=== PATIENT | female | born 2000 | race Caucasian/White ===

== ENCOUNTER 2023-06-22 23:41 | Observation (INO) ==
[2023-06-23] MEDS ORDERED: KETOROLAC TROMETHAMINE 15 MG/ML VIAL IV STA (00:04)
[2023-06-23] MEDS ORDERED: SODIUM CHLORIDE 0.9% 1,000 ML IV SCH (00:15)
[2023-06-23 00:35] LABS: Basophils # (auto) 0.03 K/uL (0.00-0.20); Basophils % (auto) 0.5 %; Eosinophils # (auto) 0.18 K/uL (0.00-0.50); Eosinophils % (auto) 3.1 %; Hematocrit (blood only) 36.8 % (37.0-47.0); Hemoglobin 12.4 g/dl (12.0-16.0); Immature Granulocytes # (auto) 0.02 K/uL (0.01-0.20); Immature Granulocytes % (auto) 0.3 %; Lymphocytes # (auto) 2.07 K/uL (1.20-3.40); Lymphocytes % (auto) 36.2 %; Mean Corpuscular Hgb Conc 33.7 g/dL (32.0-36.0); Mean Platelet Volume 9.9 fL (9.4-12.4); Monocytes # (auto) 0.69 K/uL (0.11-0.59); Monocytes % (auto) 12.1 %; Neutrophils # (auto) 2.73 K/uL (1.40-6.50); Neutrophils % (auto) 47.8 %; Platelet Count 292 K/uL (130-400); RDW Coefficient of Variation 12.8 % (11.5-14.5); RDW Standard Deviation 43.3 fL (36.4-46.3); White Blood Count 5.72 K/ul (4.8-10.8)
[2023-06-23 00:52] LABS: Monotest Negative (Negative); Pregnancy Test, Serum Negative (Negative)
[2023-06-23 00:56] LABS: Albumin Globulin Ratio 1.4 (0.9-2); Albumin Level 3.9 gm/dl (3.4-5.0); BUN Creatinine Ratio 26.4 (10-20); Bilirubin,Total 0.3 mg/dl (0.2-1.0); Calcium 8.9 mg/dl (8.6-10.3); Creatinine Clr Calc Pharmacy 105.8 ml/min; Est GFR (African American) 137.8 ml/min; Est GFR (Non-African American) 118.9 ml/min; Globulin 2.7 gm/dl (2.5-4.0); Potassium 3.4 mmol/L (3.5-5.1); Total Protein 6.6 gm/dl (6.0-8.3)
[2023-06-23] MEDS ORDERED: OPTIRAY 320 500ml IV ONE ×2 (01:05→01:35)
[2023-06-23 01:26] LABS: Adenovirus PCR Not Detected (NotDetected); Bordetella parapertussis PCR Not Detected (NotDetected); Bordetella pertussis PCR Not Detected (NotDetected); Chlamydia pneumoniae PCR Not Detected (NotDetected); Coronavirus 229E PCR Not Detected (NotDetected); Coronavirus CoV-2 (COVID19)PCR Not Detected (NotDetected); Coronavirus HKU1 PCR Not Detected (NotDetected); Coronavirus NL63 PCR Not Detected (NotDetected); Coronavirus OC43PCR Not Detected (NotDetected); Human Metapneumovirus PCR Not Detected (NotDetected); Influenza A PCR Not Detected (NotDetected); Influenza B PCR Not Detected (NotDetected); Mycoplasma pneumoniae PCR Not Detected (NotDetected); Parainfluenza Virus 1 PCR Not Detected (NotDetected); Parainfluenza Virus 2 PCR Not Detected (NotDetected); Parainfluenza Virus 3 PCR Not Detected (NotDetected); Parainfluenza Virus 4 PCR Not Detected (NotDetected); Respiratory Syncytial VirusPCR Not Detected (NotDetected)
[2023-06-23 01:27] LABS: Rhinovirus/Enterovirus PCR DETECTED (NotDetected)
--- NOTE | 2023-06-23 01:54 | CT Scan Report ---
Exam(s): CT NECK With Contrast IV Amt: 84 ML OPTIRAY 320 EXAM: CT Neck With Intravenous Contrast CLINICAL HISTORY: Reason for exam: recent dental surgery; neck swelling. TECHNIQUE: Axial computed tomography images of the neck with intravenous contrast. CTDI is 18.18 mGy and DLP is 487 mGy-cm. Automated exposure control was utilized for the study. A dose lowering technique was utilized adhering to the principles of ALARA. CONTRAST: Patient received 84 ML OPTIRAY 320 of IV contrast COMPARISON: No relevant prior studies available. FINDINGS: Oropharynx: Unremarkable. No significant tonsillar enlargement. No peritonsillar abscess. Hypopharynx: Unremarkable. Larynx: Unremarkable. Normal epiglottis. Trachea: Unremarkable. Retropharyngeal space: Unremarkable. Submandibular/parotid glands: Unremarkable. Glands are normal in size. Thyroid: Unremarkable. No enlarged or calcified nodules. Bones/joints: Recent bilateral maxillary wisdom tooth extraction. No facial fracture or abscess is identified. Soft tissues: Unremarkable. Vasculature: No acute findings. Lymph nodes: Unremarkable. No lymphadenopathy. Sinuses: Mucosal thickening throughout the maxillary sinuses as well as several ethmoid air cells and a portion of the left frontal sinus suggesting sinusitis. No gas/fluid level is seen. Lung apices: Unremarkable as visualized. Mediastinum: There is pneumomediastinum in the upper thorax extending up throughout the neck up to the level of the skull base. No abscess or focal fluid collection is seen. No pneumothorax is identified. IMPRESSION: 1. There is pneumomediastinum in the upper thorax extending up throughout the neck up to the level of the skull base. No abscess or focal fluid collection is seen. No pneumothorax is identified. 2. Mucosal thickening throughout the maxillary sinuses as well as several ethmoid air cells and a portion of the left frontal sinus suggesting sinusitis. No gas/fluid level is seen. 3. Recent bilateral maxillary wisdom tooth extraction. No facial fracture or abscess is identified. Communications: Call Doctor Above results Electronically signed by: Alex Carpio MD 06/23/23 01:53 AM
[2023-06-23] MEDS ORDERED: cefTRIAXone SODIUM 1,000 MG/50 ML BAG IV STA (02:09)
[2023-06-23] MEDS ORDERED: metroNIDAZOLE 500 MG/100 ML BAG IV STA (02:09)
[2023-06-23] MEDS ORDERED: HYDROcodone/HOMATROPINE SYRUP 5MG/1.5MG 5ML UDP PO STA (02:17)
--- NOTE | 2023-06-23 02:21 | CT Scan Report ---
Exam(s): CT CHEST With Contrast IV Amt: 84 ML OPTIRAY 320 EXAM: CT Chest With Intravenous Contrast CLINICAL HISTORY: Reason for exam: Subcutaneous air on ct neck. TECHNIQUE: Axial computed tomography images of the chest with intravenous contrast. Automated exposure control was utilized for the study. A dose lowering technique was utilized adhering to the principles of ALARA. CONTRAST: Patient received 84 ML OPTIRAY 320 of IV contrast COMPARISON: No relevant prior studies available. FINDINGS: Lungs: Unremarkable. No mass. No consolidation. Pleural space: Unremarkable. No pneumothorax. No significant effusion. Heart: Unremarkable. No cardiomegaly. No significant pericardial effusion. No significant coronary artery calcifications. Mediastinum: There is pneumomediastinum throughout the mid to upper mediastinum and neck. No abscess or focal fluid collection is seen. The esophagus is nondistended and appears unremarkable. No focal wall thickening or foreign body is seen. Bones/joints: Unremarkable. No acute fracture. No dislocation. Soft tissues: Unremarkable. Vasculature: Unremarkable. No thoracic aortic aneurysm. Lymph nodes: Unremarkable. No enlarged lymph nodes. IMPRESSION: There is pneumomediastinum throughout the mid to upper mediastinum and neck. No abscess or focal fluid collection is seen. The esophagus is nondistended and appears unremarkable. No focal wall thickening or foreign body is seen. Findings discussed with Zain WILKERSON at 0203 hrs. (-05:00) Electronically signed by: Alex Carpio MD 06/23/23 02:20 AM
--- NOTE | 2023-06-23 02:34 | History & Physical Report ---
Date of Service June 23, 2023 Assessment & Plan (1) Pneumomediastinum: Plan: Likely secondary patient's recent URI, aggressive cough. + for Enterovirus on [employer] panel Patient denies trauma. No pneumothorax. No esophageal pathology noted. -Observation to medical -Continue supplemental O2 via NRB -Guaifenesin -Continue antibiotic coverage Ceftriaxone and Flagyl for now -Repeat CXR in AM History of Present Illness Chief Complaint: cough Primary Care Provider: [facility] Kaleigh Stevens is a 23yo female presenting with pneumomediastinum. Patient with recent wisdom tooth extraction. She had URI symptoms with severe coughing productive for green sputum. She developed subcutaneous air then had some swelling and stiffness of the neck. She denies shortness of breath, fever, chills, abdominal pain, nausea, vomiting or diarrhea. Patient does not smoke or vape. No report of trauma. No reflux symptoms, dysphagia or epigastric pain. Allergies Allergy/AdvReac Type Severity Reaction Status Date / Time amoxicillin Allergy Intermediate Hives Verified 06/23/23 00:25 Penicillins Allergy Intermediate Hives Verified 06/23/23 00:25 Home Medications Medication Instructions Recorded Confirmed Type norgestimate 0.25 mg-ethinyl 1 tab PO HS 06/23/23 06/23/23 History estradiol 35 mcg tablet (Sprintec (28)) Past Med/Surg History Social History Smoking Status: Never smoker Preferred Language: Swedish Feels Safe at Home: Yes Review of Systems Review of Systems: All systems reviewed & are unremarkable except as noted in HPI & below Physical Exam Physical Exam: General: patient resting comfortably, NAD, non-toxic in appearance, AA&O x 4 Skin: warm, dry, intact, no rashes or lesions HEENT: NC/AT, PERRL, EOMI, anicteric sclera, conjunctiva without injection, external ear normal to inspection and nontender, nares patent, moist mucus membranes, dentition intact, no oropharyngeal lesions, neck supple, trachea midline, no LAD, no thyromegaly, no JVD Heart: +S1/S2, regular, no m/r/g Lungs: equal air entry bilaterally, no rales/rhonchi/wheezes, NRB in place Abd: +BS, soft, NT/ND, no masses/organomegaly/ascites Ext: warm, 2+ pulses in UE/LE bilaterally, no clubbing/cyanosis or edema Neuro: nonfocal, patient AA&O x 4, speech intact, no facial droop, moving all extremities on command with equal strength 5/5 Results & Data Results & Data Vital Signs (Past 12 Hours) Vital Signs Temp Pulse Pulse Resp BP BP Pulse Ox 06/23/23 02:00 71 19 121/83 98 06/23/23 01:36 88 20 129/75 99 06/23/23 01:00 75 16 113/74 98 06/23/23 00:30 81 17 119/74 98 06/23/23 00:02 94 H 16 129/81 98 06/22/23 23:45 36.4 C L 93 H 20 139/78 100 O2 Del Method 06/23/23 02:00 Room Air 06/23/23 01:36 Room Air 06/23/23 01:00 Room Air 06/23/23 00:30 Room Air 06/23/23 00:02 Room Air 06/22/23 23:45 Room Air Laboratory Results Laboratory Results WBC 5.72 K/ul (4.8-10.8) 06/23/23 00:12 RBC 4.00 M/uL (4.20-5.40) L 06/23/23 00:12 Hgb 12.4 g/dl (12.0-16.0) 06/23/23 00:12 Hct 36.8 % (37.0-47.0) L 06/23/23 00:12 MCV 92.0 fL (80.0-100.0) 06/23/23 00:12 MCH 31.0 pg (25.0-34.0) 06/23/23 00:12 MCHC 33.7 g/dL (32.0-36.0) 06/23/23 00:12 RDW Std Deviation 43.3 fL (36.4-46.3) 06/23/23 00:12 RDW Coeff of Anitha 12.8 % (11.5-14.5) 06/23/23 00:12 Plt Count 292 K/uL (130-400) 06/23/23 00:12 MPV 9.9 fL (9.4-12.4) 06/23/23 00:12 Immature Gran % (Auto) 0.3 % 06/23/23 00:12 Neut % (Auto) 47.8 % 06/23/23 00:12 Lymph % (Auto) 36.2 % 06/23/23 00:12 Pitt % (Auto) 12.1 % 06/23/23 00:12 Eos % (Auto) 3.1 % 06/23/23 00:12 Baso % (Auto) 0.5 % 06/23/23 00:12 Neut # (Auto) 2.73 K/uL (1.40-6.50) 06/23/23 00:12 Lymph # (Auto) 2.07 K/uL (1.20-3.40) 06/23/23 00:12 Pitt # (Auto) 0.69 K/uL (0.11-0.59) H 06/23/23 00:12 Eos # (Auto) 0.18 K/uL (0.00-0.50) 06/23/23 00:12 Baso # (Auto) 0.03 K/uL (0.00-0.20) 06/23/23 00:12 Immature Gran # (Auto) 0.02 K/uL (0.01-0.20) 06/23/23 00:12 Sodium 137 mmol/L (136-145) 06/23/23 00:15 Potassium 3.4 mmol/L (3.5-5.1) L 06/23/23 00:15 Chloride 104 mmol/L (98-107) 06/23/23 00:15 Carbon Dioxide 24 mmol/L (21-32) 06/23/23 00:15 Anion Gap 9 (3-11) 06/23/23 00:15 BUN 19 mg/dl (6-23) 06/23/23 00:15 Creatinine 0.72 mg/dl (0.6-1.2) 06/23/23 00:15 Est Cr Clr Drug Dosing 105.8 ml/min 06/23/23 00:15 Est GFR ( Amer) 137.8 ml/min 06/23/23 00:15 Est GFR (Non-Af Amer) 118.9 ml/min 06/23/23 00:15 BUN/Creatinine Ratio 26.4 (10-20) H 06/23/23 00:15 Glucose 125 mg/dl (70-99(Fasting)) H 06/23/23 00:15 Calcium 8.9 mg/dl (8.6-10.3) 06/23/23 00:15 Total Bilirubin 0.3 mg/dl (0.2-1.0) 06/23/23 00:15 AST 28 U/L (13-39) 06/23/23 00:15 ALT 17 U/L (7-52) 06/23/23 00:15 Alkaline Phosphatase 54 U/L (34-104) 06/23/23 00:15 Total Protein 6.6 gm/dl (6.0-8.3) 06/23/23 00:15 Albumin 3.9 gm/dl (3.4-5.0) 06/23/23 00:15 Globulin 2.7 gm/dl (2.5-4.0) 06/23/23 00:15 Albumin/Globulin Ratio 1.4 (0.9-2) 06/23/23 00:15 HCG, Qual Negative (Negative) 06/23/23 00:12 Adenovirus (PCR) Not Detected (NotDetected) 06/23/23 00:19 B. pertussis DNA (PCR) Not Detected (NotDetected) 06/23/23 00:19 B.parapertussis DNA PCR Not Detected (NotDetected) 06/23/23 00:19 C. pneumoniae DNA (PCR) Not Detected (NotDetected) 06/23/23 00:19 Coronavirus OC43 (PCR) Not Detected (NotDetected) 06/23/23 00:19 Coronavirus HKU1 (PCR) Not Detected (NotDetected) 06/23/23 00:19 Coronavirus 229E (PCR) Not Detected (NotDetected) 06/23/23 00:19 SARS-CoV-2 (PCR) Not Detected (NotDetected) 06/23/23 00:19 Coronavirus NL63 (PCR) Not Detected (NotDetected) 06/23/23 00:19 Monoscreen Negative (Negative) 06/23/23 00:12 Human Metapneumovir PCR Not Detected (NotDetected) 06/23/23 00:19 Influenza Type A (PCR) Not Detected (NotDetected) 06/23/23 00:19 Influenza Type B (PCR) Not Detected (NotDetected) 06/23/23 00:19 M. pneumoniae (PCR) Not Detected (NotDetected) 06/23/23 00:19 Parainfluenza 1 (PCR) Not Detected (NotDetected) 06/23/23 00:19 Parainfluenza 2 (PCR) Not Detected (NotDetected) 06/23/23 00:19 Parainfluenza 3 (PCR) Not Detected (NotDetected) 06/23/23 00:19 Parainfluenza 4 (PCR) Not Detected (NotDetected) 06/23/23 00:19 RSV (PCR) Not Detected (NotDetected) 06/23/23 00:19 Entero/Rhino (PCR) DETECTED (NotDetected) A* 06/23/23 00:19 Group A Strep (PCR) NOT DETECTED (NotDetected) 06/23/23 00:12 Impressions Soft Tissue Neck CT 06/22/23 23:51 CR Exam(s): CT NECK With Contrast IV Amt: 84 ML OPTIRAY 320 EXAM: CT Neck With Intravenous Contrast CLINICAL HISTORY: Reason for exam: recent dental surgery; neck swelling. TECHNIQUE: Axial computed tomography images of the neck with intravenous contrast. CTDI is 18.18 mGy and DLP is 487 mGy-cm. Automated exposure control was utilized for the study. A dose lowering technique was utilized adhering to the principles of ALARA. CONTRAST: Patient received 84 ML OPTIRAY 320 of IV contrast COMPARISON: No relevant prior studies available. FINDINGS: Oropharynx: Unremarkable. No significant tonsillar enlargement. No peritonsillar abscess. Hypopharynx: Unremarkable. Larynx: Unremarkable. Normal epiglottis. Trachea: Unremarkable. Retropharyngeal space: Unremarkable. Submandibular/parotid glands: Unremarkable. Glands are normal in size. Thyroid: Unremarkable. No enlarged or calcified nodules. Bones/joints: Recent bilateral maxillary wisdom tooth extraction. No facial fracture or abscess is identified. Soft tissues: Unremarkable. Vasculature: No acute findings. Lymph nodes: Unremarkable. No lymphadenopathy. Sinuses: Mucosal thickening throughout the maxillary sinuses as well as several ethmoid air cells and a portion of the left frontal sinus suggesting sinusitis. No gas/fluid level is seen. Lung apices: Unremarkable as visualized. Mediastinum: There is pneumomediastinum in the upper thorax extending up throughout the neck up to the level of the skull base. No abscess or focal fluid collection is seen. No pneumothorax is identified. IMPRESSION: 1. There is pneumomediastinum in the upper thorax extending up throughout the neck up to the level of the skull base. No abscess or focal fluid collection is seen. No pneumothorax is identified. 2. Mucosal thickening throughout the maxillary sinuses as well as several ethmoid air cells and a portion of the left frontal sinus suggesting sinusitis. No gas/fluid level is seen. 3. Recent bilateral maxillary wisdom tooth extraction. No facial fracture or abscess is identified. Communications: Call Doctor Above results Electronically signed by: Alex Carpio MD 06/23/23 01:[address] 06/23/23 01:14 Exam(s): CT CHEST With Contrast IV Amt: 84 ML OPTIRAY 320 EXAM: CT Chest With Intravenous Contrast CLINICAL HISTORY: Reason for exam: Subcutaneous air on ct neck. TECHNIQUE: Axial computed tomography images of the chest with intravenous contrast. Automated exposure control was utilized for the study. A dose lowering technique was utilized adhering to the principles of ALARA. CONTRAST: Patient received 84 ML OPTIRAY 320 of IV contrast COMPARISON: No relevant prior studies available. FINDINGS: Lungs: Unremarkable. No mass. No consolidation. Pleural space: Unremarkable. No pneumothorax. No significant effusion. Heart: Unremarkable. No cardiomegaly. No significant pericardial effusion. No significant coronary artery calcifications. Mediastinum: There is pneumomediastinum throughout the mid to upper mediastinum and neck. No abscess or focal fluid collection is seen. The esophagus is nondistended and appears unremarkable. No focal wall thickening or foreign body is seen. Bones/joints: Unremarkable. No acute fracture. No dislocation. Soft tissues: Unremarkable. Vasculature: Unremarkable. No thoracic aortic aneurysm. Lymph nodes: Unremarkable. No enlarged lymph nodes. IMPRESSION: There is pneumomediastinum throughout the mid to upper mediastinum and neck. No abscess or focal fluid collection is seen. The esophagus is nondistended and appears unremarkable. No focal wall thickening or foreign body is seen. Findings discussed with Zain WILKERSON at 0203 hrs. (-05:00) Electronically signed by: Alex Carpio MD 06/23/23 02:20 AM PG Care Time/CCT Total # of Minutes Spent Total Time Spent with Patient: Total time spent is greater than 50% in coordination of care (as documented) at patient's floor/unit and/or counseling patient: Coding Level of Care Code 20663 INT INP/OBS CARE 2MIN Diagnoses Pneumomediastinum J98.2
[2023-06-23] MEDS ORDERED: POTASSIUM CHLORIDE CRTAB 20 MEQ TABCR PO STA (04:42)
[2023-06-23] MEDS ORDERED: ONDANSETRON INJ 2 MG/ML 2 ML VIAL IV PRN (04:42)
--- NOTE | 2023-06-23 05:37 | Emergency Department Note ---
History of Present Illness General Chief complaint: Dental/Oral Stated complaint: NECK/FACE SWELLING,TROUBLE BREATHING,S/P SURGERY Time Seen by Provider: 06/22/23 23:56 History of Present Illness Maximum Pain Intensity: 5 This is a 23-year-old female presenting to the emergency department for evaluation of discomfort in her neck with stiffness and swelling. Patient states symptoms have occurred over the past few hours. The patient had 2 wisdom teeth removed last week over the back home in [place]. She did take Zithromax prior to the procedure and has not had fevers or chills. She rates her current discomfort a 5/10. The patient did have some URI symptoms a few days ago but no significant chest pain, chest tightness, or shortness of breath. She was not intubated for her wisdom teeth removal. No significant coughing or injury. Earlier tonight she felt like the skin was very crackly and when she pressed on it it felt like popcorn. Home Medications Medication Instructions Recorded Confirmed Type norgestimate 0.25 mg-ethinyl 1 tab PO HS 06/23/23 06/23/23 History estradiol 35 mcg tablet (Sprintec (28)) Allergies Allergy/AdvReac Type Severity Reaction Status Date / Time amoxicillin Allergy Intermediate Hives Verified 06/23/23 00:25 Penicillins Allergy Intermediate Hives Verified 06/23/23 00:25 Past Med/Surg History Medical History Pneumomediastinum Surgical History [place] teeth removed Social History Smoking Status: Never smoker Hx Alcohol Use: Yes Alcohol type: beer, wine and hard liquor Hx Substance Use: No Preferred Language: American Communication Ability: Effective 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 Beliefs That Will Affect Care: None Current Living Situation: Alone Feels Safe at Home: Yes Assistive Devices: None Review of Systems A total of 10 systems reviewed and were otherwise negative Physical Exam Vital Signs Vital Signs - 24 hr 06/22/23 23:45 06/23/23 00:02 06/23/23 00:30 Temperature 36.4 C L Temperature Source Temporal Artery Scan Pulse Rate 93 H Pulse Rate [Apical] 94 H 81 Respiratory Rate 20 16 17 Respiratory Effort / Characteristics Non-Labored Non-Labored Respiratory Depth Normal Normal Respiratory Pattern Regular Regular Blood Pressure 139/78 Blood Pressure [Right Arm] 129/81 119/74 Blood Pressure Mean 98 Blood Pressure Mean [Right Arm] 97 89 Pulse Oximetry 100 98 98 Oxygen Delivery Method Room Air Room Air Room Air Sepsis Recent Fever Within 48 Hours No Sepsis New/Unexplained Change in Mental Status No Sepsis Action Taken by Nursing No Action Required 06/23/23 01:00 06/23/23 01:36 06/23/23 02:00 Temperature Temperature Source Pulse Rate Pulse Rate [Apical] 75 88 71 Respiratory Rate 16 20 19 Respiratory Effort / Characteristics Non-Labored Non-Labored Respiratory Depth Normal Normal Respiratory Pattern Regular Blood Pressure Blood Pressure [Right Arm] 113/74 129/75 121/83 Blood Pressure Mean Blood Pressure Mean [Right Arm] 87 93 95 Pulse Oximetry 98 99 98 Oxygen Delivery Method Room Air Room Air Room Air Sepsis Recent Fever Within 48 Hours Sepsis New/Unexplained Change in Mental Status Sepsis Action Taken by Nursing VITALS: Vitals are noted on the nurse's note and reviewed by myself. Vital signs stable. GENERAL: Well-developed, well-nourished, white female, who is in no acute distress and resting comfortably. Patient is cooperative with the examination. HEAD: Normocephalic atraumatic. MOUTH: Mucous membranes moist. Tonsils are not enlarged. Pharynx without erythema, blood, or exudate. Uvula midline. Airway patent. Dentition in good repair without obvious abscess. NECK: Supple without nuchal rigidity. No lymphadenopathy. No thyromegaly. Cervical spine is nontender. Palpable crepitus noted. HEART: Regular rate and rhythm without murmurs gallops or rubs. LUNGS: Clear to auscultation bilaterally without wheezes, rales or rhonchi. No retractions or accessory muscle use. ABDOMEN: Positive normal bowel sounds x 4. Soft, nontender, without masses or organomegaly. No guarding or rebound tenderness. MUSCULOSKELETAL: No muscle atrophy, erythema, or edema noted. Full range of motion in all extremities. Course Administered Medications Discontinued Medications Hydrocodone Bit/Homatropine Methylb (Hydrocodone/Homatropine Syrup 5mg/1.5mg 5ml Udp) 5 ml PO NOW STA Stop: 06/23/23 02:18 Last Admin: 06/23/23 02:33 Dose: 5 ml Documented By: IMELDA Sodium Chloride (Nss) 1,000 mls @ 999 mls/hr IV .Q1H1M MARLON Stop: 06/23/23 01:15 Last Infusion: 06/23/23 01:12 Dose: Infused Documented By: Admin: 06/23/23 00:11 Dose: 999 mls/hr Documented By: IMELDA Ceftriaxone Sodium (Rocephin) 1,000 mg in 50 mls @ 100 mls/hr IV NOW STA Stop: 06/23/23 02:38 Last Infusion: 06/23/23 03:09 Dose: Infused Documented By: Admin: 06/23/23 02:21 Dose: 100 mls/hr Documented By: IMELDA Metronidazole (Flagyl) 500 mg in 100 mls @ 100 mls/hr IV NOW STA; Protocol Stop: 06/23/23 03:08 Last Infusion: 06/23/23 03:34 Dose: Infused Documented By: Admin: 06/23/23 02:21 Dose: 100 mls/hr Documented By: IMELDA Ioversol (Optiray 320 500ml) 100 ml IV ONCE ONE Stop: 06/23/23 01:06 Last Admin: 06/23/23 01:05 Dose: 84 ml Documented By: SABIHA Ioversol (Optiray 320 500ml) 100 ml IV ONCE ONE Stop: 06/23/23 01:36 Last Admin: 06/23/23 01:36 Dose: 84 ml Documented By: SABIHA Ketorolac Tromethamine (Ketorolac Tromethamine 15 Mg/Ml Vial) 15 mg IV NOW STA Stop: 06/23/23 00:05 Last Admin: 06/23/23 00:11 Dose: 15 mg Documented By: IMELDA Potassium Chloride (Potassium Chloride Crtab 20 Meq Tabcr) 40 meq PO NOW STA Stop: 06/23/23 04:43 Last Admin: 06/23/23 05:00 Dose: 40 meq Documented By: HARDIK Medical Decision Making Differential Diagnosis Differential diagnosis includes, but is not limited to: Dental infection, myocardial infarction, dysrhythmia, pericarditis, pneumothorax, aortic aneurysm/dissection, DVT/PE, anxiety, GERD, PUD, electrolyte imbalance, thyroid disorder, pneumonia, bronchitis, pancreatitis, and others Laboratory Data 06/23/23 00:12 06/23/23 00:15 Lab Results 06/23/23 06/23/23 06/23/23 Range/Units 00:12 00:15 00:19 WBC 5.72 (4.8-10.8) K/ul RBC 4.00 L (4.20-5.40) M/uL Hgb 12.4 (12.0-16.0) g/dl Hct 36.8 L (37.0-47.0) % MCV 92.0 (80.0-100.0) fL MCH 31.0 (25.0-34.0) pg MCHC 33.7 (32.0-36.0) g/dL RDW Std Deviation 43.3 (36.4-46.3) fL RDW Coeff of Anitha 12.8 (11.5-14.5) % Plt Count 292 (130-400) K/uL MPV 9.9 (9.4-12.4) fL Immature Gran % (Auto) 0.3 % Neut % (Auto) 47.8 % Lymph % (Auto) 36.2 % Kings % (Auto) 12.1 % Eos % (Auto) 3.1 % Baso % (Auto) 0.5 % Neut # (Auto) 2.73 (1.40-6.50) K/uL Lymph # (Auto) 2.07 (1.20-3.40) K/uL Kings # (Auto) 0.69 H (0.11-0.59) K/uL Eos # (Auto) 0.18 (0.00-0.50) K/uL Baso # (Auto) 0.03 (0.00-0.20) K/uL Immature Gran # (Auto) 0.02 (0.01-0.20) K/uL Sodium 137 (136-145) mmol/L Potassium 3.4 L (3.5-5.1) mmol/L Chloride 104 (98-107) mmol/L Carbon Dioxide 24 (21-32) mmol/L Anion Gap 9 (3-11) BUN 19 (6-23) mg/dl Creatinine 0.72 (0.6-1.2) mg/dl Est Cr Clr Drug Dosing 105.8 ml/min Est GFR ( Amer) 137.8 ml/min Est GFR (Non-Af Amer) 118.9 ml/min BUN/Creatinine Ratio 26.4 H (10-20) Glucose 125 H (70-99(Fasting)) mg/dl Calcium 8.9 (8.6-10.3) mg/dl Total Bilirubin 0.3 (0.2-1.0) mg/dl AST 28 (13-39) U/L ALT 17 (7-52) U/L Alkaline Phosphatase 54 (34-104) U/L Total Protein 6.6 (6.0-8.3) gm/dl Albumin 3.9 (3.4-5.0) gm/dl Globulin 2.7 (2.5-4.0) gm/dl Albumin/Globulin Ratio 1.4 (0.9-2) HCG, Qual Negative (Negative) Adenovirus (PCR) Not Detected (NotDetected) B. pertussis DNA (PCR) Not Detected (NotDetected) B.parapertussis DNA PCR Not Detected (NotDetected) C. pneumoniae DNA (PCR) Not Detected (NotDetected) Coronavirus OC43 (PCR) Not Detected (NotDetected) Coronavirus HKU1 (PCR) Not Detected (NotDetected) Coronavirus 229E (PCR) Not Detected (NotDetected) SARS-CoV-2 (PCR) Not Detected (NotDetected) Coronavirus NL63 (PCR) Not Detected (NotDetected) Monoscreen Negative (Negative) Human Metapneumovir PCR Not Detected (NotDetected) Influenza Type A (PCR) Not Detected (NotDetected) Influenza Type B (PCR) Not Detected (NotDetected) M. pneumoniae (PCR) Not Detected (NotDetected) Parainfluenza 1 (PCR) Not Detected (NotDetected) Parainfluenza 2 (PCR) Not Detected (NotDetected) Parainfluenza 3 (PCR) Not Detected (NotDetected) Parainfluenza 4 (PCR) Not Detected (NotDetected) RSV (PCR) Not Detected (NotDetected) Entero/Rhino (PCR) DETECTED A* (NotDetected) Group A Strep (PCR) NOT DETECTED (NotDetected) Imaging Data Radiologist's Impression: Soft Tissue Neck CT 06/22/23 23:51 CR Exam(s): CT NECK With Contrast IV Amt: 84 ML OPTIRAY 320 EXAM: CT Neck With Intravenous Contrast CLINICAL HISTORY: Reason for exam: recent dental surgery; neck swelling. TECHNIQUE: Axial computed tomography images of the neck with intravenous contrast. CTDI is 18.18 mGy and DLP is 487 mGy-cm. Automated exposure control was utilized for the study. A dose lowering technique was utilized adhering to the principles of ALARA. CONTRAST: Patient received 84 ML OPTIRAY 320 of IV contrast COMPARISON: No relevant prior studies available. FINDINGS: Oropharynx: Unremarkable. No significant tonsillar enlargement. No peritonsillar abscess. Hypopharynx: Unremarkable. Larynx: Unremarkable. Normal epiglottis. Trachea: Unremarkable. Retropharyngeal space: Unremarkable. Submandibular/parotid glands: Unremarkable. Glands are normal in size. Thyroid: Unremarkable. No enlarged or calcified nodules. Bones/joints: Recent bilateral maxillary wisdom tooth extraction. No facial fracture or abscess is identified. Soft tissues: Unremarkable. Vasculature: No acute findings. Lymph nodes: Unremarkable. No lymphadenopathy. Sinuses: Mucosal thickening throughout the maxillary sinuses as well as several ethmoid air cells and a portion of the left frontal sinus suggesting sinusitis. No gas/fluid level is seen. Lung apices: Unremarkable as visualized. Mediastinum: There is pneumomediastinum in the upper thorax extending up throughout the neck up to the level of the skull base. No abscess or focal fluid collection is seen. No pneumothorax is identified. IMPRESSION: 1. There is pneumomediastinum in the upper thorax extending up throughout the neck up to the level of the skull base. No abscess or focal fluid collection is seen. No pneumothorax is identified. 2. Mucosal thickening throughout the maxillary sinuses as well as several ethmoid air cells and a portion of the left frontal sinus suggesting sinusitis. No gas/fluid level is seen. 3. Recent bilateral maxillary wisdom tooth extraction. No facial fracture or abscess is identified. Communications: Call Doctor Above results Electronically signed by: Alex Carpio MD 06/23/23 01:[address] 06/23/23 01:14 Exam(s): CT CHEST With Contrast IV Amt: 84 ML OPTIRAY 320 EXAM: CT Chest With Intravenous Contrast CLINICAL HISTORY: Reason for exam: Subcutaneous air on ct neck. TECHNIQUE: Axial computed tomography images of the chest with intravenous contrast. Automated exposure control was utilized for the study. A dose lowering technique was utilized adhering to the principles of ALARA. CONTRAST: Patient received 84 ML OPTIRAY 320 of IV contrast COMPARISON: No relevant prior studies available. FINDINGS: Lungs: Unremarkable. No mass. No consolidation. Pleural space: Unremarkable. No pneumothorax. No significant effusion. Heart: Unremarkable. No cardiomegaly. No significant pericardial effusion. No significant coronary artery calcifications. Mediastinum: There is pneumomediastinum throughout the mid to upper mediastinum and neck. No abscess or focal fluid collection is seen. The esophagus is nondistended and appears unremarkable. No focal wall thickening or foreign body is seen. Bones/joints: Unremarkable. No acute fracture. No dislocation. Soft tissues: Unremarkable. Vasculature: Unremarkable. No thoracic aortic aneurysm. Lymph nodes: Unremarkable. No enlarged lymph nodes. IMPRESSION: There is pneumomediastinum throughout the mid to upper mediastinum and neck. No abscess or focal fluid collection is seen. The esophagus is nondistended and appears unremarkable. No focal wall thickening or foreign body is seen. Findings discussed with Zain WILKERSON at 0203 hrs. (-05:00) Electronically signed by: Alex Carpio MD 06/23/23 02:20 AM MDM Narrative Physical exam and history were performed. Nursing notes, EMR, and Medication List were personally reviewed. No social concerns were identified as barriers to patients care. Patient appears to have discomfort as above. She is concerned symptoms may be coming from a dental etiology. She does not appear toxic. My concern is the patient states that she did feel like there may have been air underneath her skin. IV access was established and labs were obtained. Patient was sent to CT scan for imaging of her neck. Patient's blood work is as above and was reviewed. She does not have a significantly elevated white blood cell count, gross anemia, bandemia, or significant electrolyte imbalance. Glucose is 125. She is not . Bio fire is POSITIVE for rhinovirus. Strep and mono are negative. CT scan of the neck was reviewed by myself and my attending. The patient has a large amount of air on CT concerning for pneumomediastinum. The patient was sent back to CT scan and additional pictures of her chest were performed. I did speak to radiology about the findings, and they agree this appears to be a pneumomediastinum. Findings were discussed with both the patient, as well as the patient's mother by telephone. The source of the air is not evident at this time. I did speak with the on-call catia designer, Dr. Michelle. Patient was placed on high flow oxygen, and given antitussive medication. Patient will be started on antibiotics and admitted to the hospital for ongoing care. I did speak with hospitalist team to help facilitate this. Please see the specialist's dictation for further patient course, plan, disposition. The chart was completed utilizing [employer] Speech Voice Recognition Software. Grammatical errors, random word insertions, pronoun errors, and incomplete sentences are an occasional consequence of this system due to software limitations, ambient noise, and hardware issues. Any formal questions or concerns about the content, text, or information contained within the body of this dictation should be directly addressed to the provider for clarification. . Impression & Plan Pneumomediastinum Discharge Plan Visit Data Chief Complaint: Dental/Oral Stated Complaint: NECK/FACE SWELLING,TROUBLE BREATHING,S/P SURGERY ED Provider: Doris Cummings ED Midlevel Provider: Zain Medina Discharge Problem: Pneumomediastinum Patient Disposition: Admitted As Inpatient Discharge Instructions Interventions: ED Discharge Assessment Last Done: 06/23/23 04:19
[2023-06-23] MEDS: ACETAMINOPHEN 325 MG TAB PO PRN ×2 (07:37→17:48)
[2023-06-23] MEDS: guaiFENesin/DEXTROM SYRUP 200MG/20MG 10ML UDC PO PRN ×2 (07:42→17:49)
--- NOTE | 2023-06-23 07:44 | XRay Report ---
XR chest 1V portable HISTORY: assess pneumomediastinum COMPARISON: Chest CT 06/23/2023. FINDINGS: Pneumomediastinum again noted which extends into the neck. This appears to have improved in the interval. No pneumothorax. No pleural effusions. The heart is normal in size. The lungs are barbie r. No acute fractures. IMPRESSION: Pneumomediastinum with extension into the neck. This has slightly improved. ACT 112: Negative or not required by law. Electronically signed by: Sekou Rodriguez M.D. 06/23/2023 7:43 AM
[2023-06-23] MEDS ORDERED: INFLUENZA VIRUS QUADRIVALENT VACCINE (IIV4) 0.5 ML SYR IM ONE (08:11)
[2023-06-23] MEDS ORDERED: metroNIDAZOLE 500 MG/100 ML BAG IV SCH (10:00)
--- NOTE | 2023-06-23 14:16 | Hospitalist Progress Note ---
Date of Service June 23, 2023 Assessment & Plan (1) Pneumomediastinum: Plan: Likely secondary patient's recent URI, aggressive cough. + for Enterovirus on Biofire panel Patient denies trauma. No pneumothorax. No esophageal pathology noted. -Discussed with pulmonolgy - okay to wean O2 - recommend cough suppressant, avoid pressure changes and heavy lifting for the next month -Guaifenesin -VSS and CXR without infectious process, WBC 5 --> stop abx -Repeat CXR in AM Plan continued stay, likely dc tomorrow if continues to improve Admission and Anticipated Discharge Date Admission Date: June 23, 2023 Subjective Patient seen sitting up in bed. Does report that she is feeling better compared to last night, does still have some shortness of breath occasionally. Reports Left side of face still feels alittle swollen. Decrease appetite. No chest pain. Review of Systems Review of Systems: All systems reviewed & are unremarkable except as noted in Subjective Physical Exam Physical Exam: General: WN/WD, NAD, VS as above HEENT: mild swelling left side of face, no crepitus on palpation Resp: normal respiratory effort, lungs clear to auscultation CV: RRR, no murmur, no edema Abd: normal bowel sounds, non tender, no hepatosplenomegaly Extremities: Moves all extremities, no edema Neuro: A&O x3, Skin: intact, no lesions noted Results & Data Results & Data Vital Signs (Past 12 Hours) Vital Signs Temp Pulse Pulse Pulse Resp BP BP 06/23/23 07:35 06/23/23 07:29 36.5 C 63 19 116/74 06/23/23 05:07 06/23/23 05:07 36.6 C 61 20 06/23/23 04:00 63 19 104/60 06/23/23 03:30 61 20 109/66 06/23/23 03:00 63 22 06/23/23 02:46 66 06/23/23 02:35 67 17 BP Pulse Ox O2 Del Method O2 Flow Rate 06/23/23 07:35 Non-rebreather 15 06/23/23 07:29 100 Oxymask 15 06/23/23 05:07 Non-rebreather 15 06/23/23 05:07 106/60 100 Non-rebreather 15 06/23/23 04:00 100 Non-rebreather 15 06/23/23 03:30 100 Non-rebreather 15 06/23/23 03:00 100 Non-rebreather 15 06/23/23 02:46 06/23/23 02:35 124/82 100 Non-rebreather 15 Laboratory Results Reviewed CBC, CMP and biofire. PG Care Time/CCT Total # of Minutes Spent Total Time Spent with Patient: Total time spent is greater than 50% in coordination of care (as documented) at patient's floor/unit and/or counseling patient: Coding Level of Care Code None Diagnoses Pneumomediastinum J98.2
[2023-06-24] MEDS: guaiFENesin/DEXTROM SYRUP 200MG/20MG 10ML UDC PO PRN ×2 (00:05→08:00)
--- NOTE | 2023-06-24 08:20 | XRay Report ---
XR chest 1V portable HISTORY: Follow-up pneumomediastinum COMPARISON: Chest 06/23/2023. FINDINGS: Near complete resolution of the pneumomediastinum compared the prior study. The lungs are c lear. No pleural effusions. No pneumothorax. No acute fractures. IMPRESSION: Near complete resolution of the pneumomediastinum. ACT 112: Negative or not required by law. Electronically signed by: Sekou Rodriguez M.D. 06/24/2023 8:19 AM
--- NOTE | 2023-06-24 09:02 | Discharge Summary ---
Date of Service June 24, 2023 Admission HPI Per Admitting Provider Kaleigh Stevens is a 23yo female presenting with pneumomediastinum. Patient with recent wisdom tooth extraction. She had URI symptoms with severe coughing productive for green sputum. She developed subcutaneous air then had some swelling and stiffness of the neck. She denies shortness of breath, fever, chills, abdominal pain, nausea, vomiting or diarrhea. Patient does not smoke or vape. No report of trauma. No reflux symptoms, dysphagia or epigastric pain. Principal Diagnosis Pneumomediastinum Discharge Exam General: WN/WD, NAD, VS as above HEENT: left sided face swelling improved , no crepitus on palpation Resp: normal respiratory effort, lungs clear to auscultation CV: RRR, no murmur, no edema Abd: non tender, no hepatosplenomegaly Extremities: Moves all extremities, no edema Neuro: A&O x3, Skin: intact, no lesions noted Discharge Data Allergies Allergy/AdvReac Type Severity Reaction Status Date / Time amoxicillin Allergy Intermediate Hives Verified 06/23/23 00:25 Penicillins Allergy Intermediate Hives Verified 06/23/23 00:25 Consultations 06/23/23 02:45 ED Decision to Admit Stat Ordered Studies 06/22/23 23:51 CT neck soft tissues [CT soft tissue neck w con] Stat 06/23/23 01:14 CT chest diagnostic w con Stat Hospital Course (1) Pneumomediastinum: Likely secondary patient's recent URI, aggressive cough. + for Enterovirus on Biofire panel Patient denies trauma. No pneumothorax. No esophageal pathology noted. - recommend cough suppressant, avoid pressure changes and heavy lifting for the next month -was started on flagyl and ceftriaxone but these were discontinued after VSS and CXR without infectious process, WBC 5 -Repeat CXR 06/24 showed near resolution of pneumomediastinum. 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 Discharge to home Total Time Total Time Spent Total Time Spent (In Minutes): 35 Discharge Plan Discharge Items Patient Disposition: Home - Self-Care Reason For Visit: PNEUMOMEDIASTINUM Discharge Diagnosis: Pneumomediastinum - improving Activity: Resume your previous activity Lifting Comment: No heavy lifting that causes you to strain for one month Bathing: No limitations Exercise Comment: Okay to resume gymnastics and participate in cardio exercise. Driving/Machine Use: No limitations Weightbearing: Full weightbearing Non-emergency contact: Primary Care Provider Call non-emergency contact if: your symptoms worsen Follow-up/Referrals: [facility] [Primary Care Provider] - (follow up in 1-2 weeks PATIENT NEEDS TO CALL [facility] TO HAVE A HOSPITAL FOLLOW UP APPOINTMENT IN 1-2 WEEKS AFTER DISCHARGE.) Diet: Regular Addtl Attending Provider Instructions: Ms. Stevens, You were hospitalized after development of pneumomediastinum, suspected to be caused by large amounts of coughing/straining. During your hospital stay with used high flow oxygen to barrel charrer helper in the resolution of this. The xray on the morning of 06/24 showed almost complete resolution of your pneumomediastinum. It will take a few days for this to completely resolve and for the next month you are at higher risk for developing another one. In order to prevent this, please refrain for the following for one month: * Changes in air pressure - like flying and scuba diving * Heavy lifting or anything that causes you to strain (constipation, etc) * Excessive coughing - please use a cough suppressant if you develop a cough You are okay to return to your gymnastics training regiment. Cardio activity will not impact the pneumomediastinum, but you should limit weight training for the next month. No lifting that causes you to strain. There are no changes to your medications. If your symptoms return please come back to the emergency room. It was our pleasure taking care of you, good luck this season! - Mary Hinson PA-C Pending Studies at Discharge: No Stand-Alone Forms: My [facility] Pose, Smoking Cessation Medications and DC Order Prescriptions: Continued norgestimate-ethinyl estradiol [Sprintec (28)] 0.25-35 mg-mcg tablet 1 tab PO HS Discharge Orders: Discharge Order (Routine); Ordered 06/24/23 Ordered By: Mary Wolff/Other Patient Handouts: Infec Common Resp Prevention Admission Data Admit Date/Time: 06/23/23 02:33 Attending Provider: Uriel Mead Admit Provider: Brittany Carpio Primary Care Provider: [facility] Other Providers: Brittany Carpio Other Interventions: Discharge Summary Assessment (RN) Last Done: 06/24/23 09:58 Supervising Physician Co-Signing Physician Notes During face to face encounter, I obtained a brief physical examination, discussed hospital stay with patient and discharge instructions with patient. I discussed discharge plan of care with RIKKI Hinson. I reviewed above note and agree with it except for the following: Patient is admitted with pneumomediastinum. Patient is on room air, Patient needs to be cleared by team physician to play. FOr now, will recommend only light activities Coding Level of Care Code 62625 INP/OBS DISCH >30 MIN Diagnoses Pneumomediastinum J98.2
[2023-06-25] MEDS ORDERED: cefTRIAXone SODIUM 1,000 MG in DEXTROSE 5 % MINI-B 50 ML IV SCH (02:00)
== END 2023-06-24 11:51 | disposition home or self-care (01) ==
LOC: 3N 23:41 → ED 23:41 → SUATTDRO 06-23 02:33 → 3N 06-23 04:19